=== PATIENT | male | born 1980 | race Caucasian/White ===

== ENCOUNTER 2017-04-23 10:48 | Emergency (ER) | payer MEDICAID, OTHER ==
[2017-04-23] MEDS ORDERED: LORazepam 2 MG/ML DISP.SYRIN IM ONE (11:31)
--- NOTE | 2017-04-23 11:38 | ERNOTE ---
Psychological HPI - Date Date of Service: 04/23/17 - General Chief Complaint: Anxiety Source: Reports: patient Exam Limitations: Reports: no limitations - Immun/Allergies/Home Medications Allergies/Adverse Reactions: Allergies No Known Allergies Allergy (Verified 04/23/17 10:58) Home Medications: HOME MEDICATIONS traZODone HCL [Desyrel] 100 mg PO BID 11/23/14 [Last Taken Unknown] ALPRAZolam [Xanax] 0.25 mg PO TID PRN #30 tab 04/23/17 [Last Taken Unknown] Divalproex Sodium [Depakote ER] 500 mg PO DAILY #30 tab 04/23/17 [Last Taken Unknown] Venlafaxine HCl [Venlafaxine HCl ER] 225 mg PO HS #30 tab.er.24 04/23/17 [Last Taken Unknown] - History of Present Illness Narrative: Pt. comes in with c/o anxiety, depression, and panic attacks after leaving [facility] 3 weeks ago. Pt. was on medications for this for two years and stopped them because he did not like the way that the respirdal that he was on made him feel. But since leaving [facility] he has felt hopeless, depressed, very anxious about rebuilding the relationship with his children, getting a job and restarting his life. Pt. state that he has though that he is not needed to be on earth but has no plans to end his life. Pt. denies any SOB, CP, NVD, fever,s , pt. is wringing hands while here and states that his thoughts are racing at this time. Time Seen by Provider: 04/23/17 11:18 Review of Systems - Review of Systems Constitutional: Present: no symptoms reported. Absent: recent illness, fever, chills, weakness, fatigue, malaise EYE: Present: no symptoms reported ENT: Present: no symptoms reported Respiratory: Present: no symptoms reported. Absent: shortness of breath, cough , wheezing Cardiology: Present: no symptoms reported. Absent: chest pain, palpitations, edema Gastrointestinal/Abdominal: Present: no symptoms reported Genitourinary: Present: no symptoms reported Musculoskeletal: Present: no symptoms reported. Absent: back pain, joint pain Skin: Present: no symptoms reported Neurological: Present: anxiety, depressed, emotional problems. Absent: headache , dizziness/light-headedness, numbness, tingling Psych: Present: anxiety, depressed, emotional problems All Other Systems: All systems neg except as marked - Patient's Past Medical History Patient History - Medical: Anxiety, Depression Patient History - Cardiac/Respiratory: No pertinent hx Patient History - Cancer: No Hx of Cancer Patient History - Surgical Procedures: Other - Social History Smoking Status: Current every day smoker Have you smoked in the past 12 months: Yes - Immunizations Immunizations Up to Date: Yes Physical Exam - Physical Exam General Appearance: Present: wd/wn, alert, no apparent distress Eye Exam: Normal inspection: bilateral, PERRL: bilateral, EOMI: bilateral Ears, Nose, Throat: Present: normal ENT inspection, normal pharynx Neck: Present: normal inspection, nontender. Absent: lymphadenopathy (R), lymphadenopathy (L) Respiratory: Present: no respiratory distress, normal breath sounds, no accessory muscle use, chest nontender, lungs clear Cardiovascular/Chest: Present: regular rate, rhythm, no murmur, normal peripheral pulses Back Exam: Present: normal inspection, normal range of motion, no CVA tenderness , no vertebral tenderness Extremity Exam: Present: normal inspection, non-tender, normal range of motion, no edema Neurological Exam: Present: alert, oriented, normal mood/affect, no motor/ sensory deficits, technical staff engineer II-XII nml as tested, normal cerebellar test Skin Exam: Present: normal color, warm/dry. Absent: pallor, skin rash ED Progress - Date and Time Seen: Date and Time: 04/23/17 12:57 Reviewed notes and will restart psych medications except respirdal and will have him follow up with Dr Bowman as planned on May 21. [facility] [place] [facility] and was given resources for support groups. - Results and Orders Patient's Lab Results:: I have reviewed the patient's lab results. - Vital Signs Patient's Vital Signs:: I have reviewed the patient's vital signs. Vital Signs: Vital Signs 04/23/17 10:55 Temperature 36.7 C Pulse Rate 80 Respiratory 14 Rate Blood Pressure 129/70 O2 Sat by Pulse 97 Oximetry - Progress/Reassessment Chief Complaint: Anxiety Progress:: Improved Departure Clinical Impression: Anxiety and depression - Departure Disposition: Home self-care Condition: Good Instructions: Panic Attacks, [id number] Additional Instructions: Please follow up with Dr Bowman as planned try to make trips into town as much as possible to be around other people and get back into regular routine. Prescriptions: ALPRAZolam [Xanax] 0.25 mg PO TID PRN #30 tab PRN Reason: Anxiety Divalproex Sodium [Depakote ER] 500 mg PO DAILY #30 tab Venlafaxine HCl [Venlafaxine HCl ER] 225 mg PO HS #30 tab.er.24
[2017-04-23] MEDS ORDERED: LORazepam 2 MG/ML DISP.SYRIN ONE (11:46)
[2017-04-23 11:59] LABS: Hematocrit 45.7 % (42.0-52.0); Hemoglobin 16.1 gm/dL (13.5-18.0); Mean Cell Volume 90.3 fl (78-100); Mean Corpuscular Hemoglobin 31.8 pg (27-31); Mean Corpuscular Hgb Conc 35.2 g/dl (32-36); Mean Platelet Volume 9.6 fl (6.0-9.5); Neutrophil # 4.9 K/mm3 (1.3-6.0); Neutrophil % 60.7 % (42-75.0); Platelet Count 320 K/mm3 (150-450); Red Blood Count 5.06 M/mm3 (4.7-6.0); Red Cell Distribution Width 12.3 % (11.5-14.0)
[2017-04-23 12:03] LABS: Urine Bilirubin Negative (NEGATIVE); Urine Blood Negative /ul (NEGATIVE); Urine Ketone Negative (NEGATIVE); Urine Nitrite Negative (NEGATIVE); Urine Protein Negative (NEGATIVE); Urine Specific Gravity 1.025 SP.GR. (1.005-1.030); Urine Urobilinogen Normal (NORMAL)
[2017-04-23 12:15] LABS: Cocaine Ur Negative (NEGATIVE); Urine Barbiturate Negative (NEGATIVE); Urine Benzodiazepines Negative (NEGATIVE); Urine Opiates Negative (NEGATIVE); Urine PCP Negative (NEGATIVE); Urine THC Positive (NEGATIVE)
[2017-04-23 12:17] LABS: Urine Appearance Slightly Cloudy; Urine Color Yellow
[2017-04-23 12:18] LABS: Urine Bacteria 1+; Urine RBC None Seen /hpf (0-5); Urine WBC TRACE /hpf (0-5)
[2017-04-23 12:20] LABS: Urine Amorphous Sediment Moderate - 2+ (NONE-FEW)
[2017-04-23 12:21] LABS: ALT 32 U/L (19-67); AST 22 U/L (0-48); Albumin * 3.9 gm/dl (3.4-5.0); Alkaline Phosphatase * 86 U/L (50-170); Anion Gap 13.1 mmol/L (6.8-13.8); BUN/Creatinine Ratio 13.3 (9.0-21.6); Bilirubin, Total 0.3 mg/dL (0.0-1.1); Blood Urea Nitrogen 12 mg/dL (6-23); Ca. Corrected For Albumin 10.2 mg/dL (8.4-10.2); Calcium * 10.4 mg/dL (7.9-10.9); Carbon Dioxide 25.1 mmol/L (24-32.6); Chloride 105 mmol/L (97-106); Glucose * 125 mg/dL (70-110); Potassium 4.2 mmol/L (3.4-4.6); Sodium 139 mmol/L (132-142); TSH * 1.058 uIU/mL (0.358-3.74); Total Protein 7.9 gm/dL (6.2-8.2)
[2017-04-23 13:18] VITALS: BP 97/76
== END 2017-04-23 13:15 | disposition home or self-care (01) ==
LOC: ER 10:48
DX: F41.8 Other specified anxiety disorders (principal); F17.210 Nicotine dependence, cigarettes, uncomplicated
CPT/HCPCS: 36415; 80053; 80307; 81001; 84443; 85025; 96372; 99284; G0481

== ENCOUNTER 2018-07-21 19:37 | Observation (INO) | payer OTHER ==
--- NOTE | 2018-07-21 20:11 | ERNOTE ---
Medical Problem HPI - General Chief Complaint: Drug Overdose Time Seen by Provider: 07/21/18 19:55 Source: patient Exam Limitations: no limitations - Immun/Allergies/Home Medications Immunizations: IMMUNIZATION HX Immunizations Up to Date Yes Allergies/Adverse Reactions: Allergies No Known Allergies Allergy (Verified 04/23/17 10:58) Home Medications: HOME MEDICATIONS traZODone HCL [Desyrel] 100 mg PO BID 11/23/14 [Last Taken Unknown] ALPRAZolam [Xanax] 0.25 mg PO TID PRN #30 tab 04/23/17 [Last Taken Unknown] Divalproex Sodium [Depakote ER] 500 mg PO DAILY #30 tab 04/23/17 [Last Taken Unknown] Venlafaxine HCl [Venlafaxine HCl ER] 225 mg PO HS #30 tab.er.24 04/23/17 [Last Taken Unknown] - History of Present History Narrative: Pt states that he thought his girlfriend was "going to do something stupid" so he showed her how stupid it would be and too all his xanax. 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 Timing: constant Severity: moderate Review of Systems - Narrative Narrative: Pt did answer questions but fell asleep quickly. - Review of Systems Constitutional: Absent: recent illness Respiratory: Absent: shortness of breath Psych: Present: depressed, emotional problems Medical History (Last Reviewed 07/21/18 @ 20:09 by Daniel Marquez DO) No pertinent past medical history Surgical History: Surgical History (Last Reviewed 07/21/18 @ 20:09 by Daniel Marquez DO) Amputation of right middle finger Leg fracture, left Family History: Family History (Last Updated 07/21/18 @ 19:53 by Soheila Rivas RN) Other No pertinent family history Social History: Preferred Language Czech Smoking Status Never smoker Have you smoked in the past 12 No months Alcohol Use none Drug Use none Physical Exam - Physical Exam General Appearance: Present: wd/wn, no apparent distress, lethargic Head Exam: Present: normal inspection, no evidence of injury Ears, Nose, Throat: Present: normal ENT inspection, normal pharynx Neck: Present: normal inspection, nontender, supple Respiratory: Present: no respiratory distress, normal breath sounds, lungs clear Cardiovascular/Chest: Present: regular rate, rhythm, no murmur, normal peripheral pulses Gastrointestinal/Abdominal: Present: normal bowel sounds, nontender, nondistended, soft Extremity Exam: Present: normal inspection, normal range of motion, no edema Neurological Exam: Present: no motor/sensory deficits, other - somnolent but awakes to verbal stimuli and is oriented x 4. Skin Exam: Present: normal color, warm/dry Lymphatic Exam: Present: no adenopathy ED Progress - Results and Orders Patient's Lab Results:: I have reviewed the patient's lab results. Results and Orders: Laboratory Tests 07/21/18 07/21/18 07/21/18 20:20 20:20 20:20 WBC 11.7 H Hgb 15.5 Hct 44.9 Plt Count 337 Sodium 136 Potassium 4.3 Chloride 103 Carbon Dioxide 28.0 BUN 15 Creatinine 0.94 Random Glucose 84 Calcium 10.7 Total Bilirubin 0.4 AST 36 ALT 26 Alkaline Phosphatase 86 Total Protein 7.4 Albumin 3.9 Urine Color Yellow Urine Appearance Clear Urine pH 6.0 Ur Specific [place] 1.025 Urine Protein Negative Urine Glucose (UA) Negative Urine Ketones Negative Urine Blood Negative Urine Nitrate Negative Urine Bilirubin Negative Urine Urobilinogen Normal Ur Leukocyte Esterase Negative Urine RBC None seen Urine WBC None seen Ur Epithelial Cells None seen Ur Squamous Epith Cells None seen Urine Bacteria None seen Urine Culture Comments No culture indicated Salicylates Less than 2.8 L Urine Opiates Screen Acetaminophen Less than 0.2 L Barbiturate Screen Ur Phencyclidine Scrn Urine Amphetamine U Benzodiazepines Scrn Urine Cocaine Screen Urine Marijuana (THC) Ethyl Alcohol Less than 3.0 07/21/18 20:20 WBC Hgb Hct Plt Count Sodium Potassium Chloride Carbon Dioxide BUN Creatinine Random Glucose Calcium Total Bilirubin AST ALT Alkaline Phosphatase Total Protein Albumin Urine Color Urine Appearance Urine pH Ur Specific [place] Urine Protein Urine Glucose (UA) Urine Ketones Urine Blood Urine Nitrate Urine Bilirubin Urine Urobilinogen Ur Leukocyte Esterase Urine RBC Urine WBC Ur Epithelial Cells Ur Squamous Epith Cells Urine Bacteria Urine Culture Comments Salicylates Urine Opiates Screen Negative Acetaminophen Barbiturate Screen Negative Ur Phencyclidine Scrn Negative Urine Amphetamine Positive H U Benzodiazepines Scrn Positive H Urine Cocaine Screen Negative Urine Marijuana (THC) Positive H Ethyl Alcohol - Vital Signs Patient's Vital Signs:: I have reviewed the patient's vital signs. Vital Signs: Vital Signs 07/21/18 19:41 Temperature 36.8 C Pulse Rate 77 Respiratory Rate 16 Blood Pressure 119/66 O2 Sat by Pulse Oximetry 96 - EKG EKG: NSR, no ST T wave changes EKG read: Interp. by me - Progress/Reassessment Chief Complaint: Drug Overdose Progress:: Unchanged Progress Note-Subjective: 07/21/18 21:42 We were unable to get a specific time frame from poison control in relation to the Xanax that the patient took. He has been stable and with a 11-12 hour 1/2 life of Xanax he will most likely need to be observed at least 1-2 half lives. I spoke with the warehouse freight handler and she does have staffing to keep him in the SCU. I spoke with Dr. Watters and he agrees to accept the patient. Departure Clinical Impression: Overdose of benzodiazepine Qualifiers: Encounter type: initial encounter Injury intent: intentional self-harm Qualified Code(s): T42.4X2A - Poisoning by benzodiazepines, intentional self- harm, initial encounter - Departure Disposition: Still a patient Condition: Stable
[2018-07-21 20:22] LABS: Hematocrit 44.9 % (42.0-52.0); Hemoglobin 15.5 gm/dL (13.5-18.0); Mean Cell Volume 90.9 fl (78-100); Mean Corpuscular Hemoglobin 31.4 pg (27-31); Mean Corpuscular Hgb Conc 34.5 g/dl (32-36); Mean Platelet Volume 9.1 fl (8-11.3); Neutrophil # 7.6 K/mm3 (1.3-6.0); Neutrophil % 64.5 % (42-75.0); Platelet Count 337 K/mm3 (150-450); Red Blood Count 4.94 M/mm3 (4.7-6.0); Red Cell Distribution Width 12.2 % (11.5-14.0); White Blood Count 11.7 K/mm3 (4.0-10.5)
[2018-07-21 20:33] LABS: Urine Bilirubin Negative (NEGATIVE); Urine Blood Negative /ul (NEGATIVE); Urine Ketone Negative (NEGATIVE); Urine Nitrite Negative (NEGATIVE); Urine Protein Negative (NEGATIVE); Urine Specific Gravity 1.025 SP.GR. (1.005-1.030); Urine Urobilinogen Normal (NORMAL)
[2018-07-21 20:35] LABS: ALT 26 U/L (19-67); AST 36 U/L (0-48); Albumin * 3.9 gm/dl (3.4-5.0); Alkaline Phosphatase * 86 U/L (50-170); Anion Gap 9.3 mmol/L (6.8-13.8); Bilirubin, Total 0.4 mg/dL (0.0-1.1); Blood Urea Nitrogen 15 mg/dL (6-23); Ca. Corrected For Albumin 10.5 mg/dL (8.4-10.2); Calcium * 10.7 mg/dL (7.9-10.9); Chloride 103 mmol/L (97-106); Glucose * 84 mg/dL (70-110); Potassium 4.3 mmol/L (3.4-4.6); Salicylate Less than 2.8 mg/dL (2.8-20.0); Sodium 136 mmol/L (132-142); Total Protein 7.4 gm/dL (6.2-8.2)
[2018-07-21 20:36] LABS: Urine Appearance Clear (CLEAR); Urine Bacteria None Seen; Urine Color Yellow; Urine RBC None Seen /hpf (0-5); Urine Squamous Epithelial Cell None Seen /hpf; Urine WBC None Seen /hpf (0-5)
[2018-07-21 20:45] LABS: Cocaine Ur Negative (NEGATIVE); Urine Barbiturate Negative (NEGATIVE); Urine Opiates Negative (NEGATIVE); Urine PCP Negative (NEGATIVE)
[2018-07-21 20:47] LABS: Urine Benzodiazepines Positive (NEGATIVE); Urine THC Positive (NEGATIVE)
--- NOTE | 2018-07-21 23:39 | HP ---
Chief Complaint - Chief Complaint Date of Service: 07/21/18 Time of Service: 23:24 History of Present Illness: Per ER note, patient took all of his xanax at once to show his girlfriend how stupid it would be. Since his arrival he has denied wanting to hurt himself, recognizes how dumb it was. He was arousable but quickly fell asleep. He has a hx of depression/anxiety based on his medications. Will discuss further when he is more coherent. Medical History (Last Updated 07/21/18 @ 22:56 by Italia Saba, GLORIA) Anxiety Depression Panic attack Psoriasis Seizure Surgical History: Surgical History (Last Reviewed 07/21/18 @ 22:56 by Italia Saba, GLORIA) Amputation of right middle finger Leg fracture, left Family History: Family History (Last Reviewed 07/21/18 @ 22:56 by Italia Saba, GLORIA) Other No pertinent family history Social History: Patient Lives/Resources Home Utilized Occupation disabled Preferred Language Kazakh Do you have any islam or No cultural preference? Smoking Status Never smoker Have you smoked in the past 12 No months Alcohol Use none Drug Use none Review Of Systems (GEN) - Review of Systems Additional Comments: Patient unable/unwilling to answer questions at this time, other than he was not trying to harm himself. He is to sedated Immunizations: IMMUNIZATION HX Immunizations Up to Date Yes Allergies/Adverse Reactions: Allergies Allergy/AdvReac Type Severity Reaction Status Date / Time No Known Allergies Allergy Verified 07/21/18 22:56 Home Medications: HOME MEDICATIONS traZODone HCL [Desyrel] 100 mg PO BID 11/23/14 [Last Taken Unknown] ALPRAZolam [Xanax] 0.25 mg PO TID PRN #30 tab 04/23/17 [Last Taken Unknown] Divalproex Sodium [Depakote ER] 500 mg PO DAILY #30 tab 04/23/17 [Last Taken Unknown] Venlafaxine HCl [Venlafaxine HCl ER] 225 mg PO HS #30 tab.er.24 04/23/17 [Last Taken Unknown] Exam - Exam Vital Signs: Vital Signs - Last Taken Temp 36.2 C 07/21/18 22:23 Pulse 74 07/21/18 23:23 Resp 16 07/21/18 23:23 BP 100/58 07/21/18 23:23 Pulse Ox 97 07/21/18 23:23 Constitutional: Present: Alert, Oriented x3, Somnolent, Middle aged Neck: Present: non-tender, supple Respiratory: Present: chest non-tender, lungs clear, normal breath sounds, no respiratory distress Cardiovascular/Chest: Present: regular rate, rhythm, no edema Abdomen: Present: Normal bowel sounds, soft Skin Exam: Present: normal color, warm/dry, no cyanosis Diagnostic Studies: Abnormal Lab Results 07/21/18 07/21/18 07/21/18 Range/Units 20:20 20:20 20:20 WBC 11.7 H (4.0-10.5) K/mm3 MCH 31.4 H (27-31) pg Neutrophils # 7.6 H (1.3-6.0) K/mm3 Calcium Adj for Albumin 10.5 H (8.4-10.2) mg/dL Salicylates Less than 2.8 L (2.8-20.0) mg/dL Acetaminophen Less than 0.2 L (10.0-30.0) mcg/mL Urine Amphetamine Positive H (NEGATIVE) U Benzodiazepines Scrn Positive H (NEGATIVE) Urine Marijuana (THC) Positive H (NEGATIVE) Laboratory Results WBC 11.7 K/mm3 (4.0-10.5) H 07/21/18 20:20 RBC 4.94 M/mm3 (4.7-6.0) 07/21/18 20:20 Hgb 15.5 gm/dL (13.5-18.0) 07/21/18 20:20 Hct 44.9 % (42.0-52.0) 07/21/18 20:20 MCV 90.9 fl (78-100) 07/21/18 20:20 MCH 31.4 pg (27-31) H 07/21/18 20:20 MCHC 34.5 g/dl (32-36) 07/21/18 20:20 RDW 12.2 % (11.5-14.0) 07/21/18 20:20 Plt Count 337 K/mm3 (150-450) 07/21/18 20:20 MPV 9.1 fl (8-11.3) 07/21/18 20:20 Immature Gran % (Auto) 0.20 % (0.001-0.429) 07/21/18 20:20 Immature Gran # (Auto) 0.02 K/mm3 (0.000-0.0310) 07/21/18 20:20 Neutrophils % 64.5 % (42-75.0) 07/21/18 20:20 Lymphocytes % 25.5 % (20-51) 07/21/18 20:20 Monocytes % 7.2 % (0.0-9) 07/21/18 20:20 Eosinophils % 1.9 % (0.0-3.0) 07/21/18 20:20 Basophils % 0.7 % (0.0-1.0) 07/21/18 20:20 Nucleated RBC % 0.0 k/mm3 (0-1) 07/21/18 20:20 Neutrophils # 7.6 K/mm3 (1.3-6.0) H 07/21/18 20:20 Lymphocytes # 2.99 k/mm3 (1.5-3.5) 07/21/18 20:20 Monocytes # 0.9 k/mm3 (0.0-1.0) 07/21/18 20:20 Eosinophils # 0.2 k/mm3 (0.0-0.7) 07/21/18 20:20 Absolute Basophils 0.1 k/mm3 (0.0-0.1) 07/21/18 20:20 Sodium 136 mmol/L (132-142) 07/21/18 20:20 Plasma Sodium 136 mmol/L (130-142) 07/21/18 20:20 Potassium 4.3 mmol/L (3.4-4.6) 07/21/18 20:20 Chloride 103 mmol/L (97-106) 07/21/18 20:20 Carbon Dioxide 28.0 mmol/L (24-32.6) 07/21/18 20:20 Anion Gap 9.3 mmol/L (6.8-13.8) 07/21/18 20:20 BUN 15 mg/dL (6-23) 07/21/18 20:20 Creatinine 0.94 mg/dL (0.4-1.4) 07/21/18 20:20 Est GFR (Non-Af Amer) 94 mL/min (60-130) 07/21/18 20:20 BUN/Creatinine Ratio 16.0 (9.0-21.6) 07/21/18 20:20 Random Glucose 84 mg/dL (70-110) 07/21/18 20:20 Calcium 10.7 mg/dL (7.9-10.9) 07/21/18 20:20 Calcium Adj for Albumin 10.5 mg/dL (8.4-10.2) H 07/21/18 20:20 Total Bilirubin 0.4 mg/dL (0.0-1.1) 07/21/18 20:20 AST 36 U/L (0-48) 07/21/18 20:20 ALT 26 U/L (19-67) 07/21/18 20:20 Alkaline Phosphatase 86 U/L (50-170) 07/21/18 20:20 Total Protein 7.4 gm/dL (6.2-8.2) 07/21/18 20:20 Albumin 3.9 gm/dl (3.4-5.0) 07/21/18 20:20 Urine Color Yellow 07/21/18 20:20 Urine Appearance Clear (CLEAR) 07/21/18 20:20 Urine pH 6.0 pH (5.0-7.0) 07/21/18 20:20 Ur Specific [place] 1.025 SP.GR. (1.005-1.030) 07/21/18 20:20 Urine Protein Negative mg/dL (NEGATIVE) 07/21/18 20:20 Urine Glucose (UA) Negative mg/dL (NEGATIVE) 07/21/18 20:20 Urine Ketones Negative mg/dL (NEGATIVE) 07/21/18 20:20 Urine Blood Negative /ul (NEGATIVE) 07/21/18 20:20 Urine Nitrate Negative (NEGATIVE) 07/21/18 20:20 Urine Bilirubin Negative mg/dl (NEGATIVE) 07/21/18 20:20 Urine Urobilinogen Normal EU/dl (NORMAL) 07/21/18 20:20 Ur Leukocyte Esterase Negative /ul (NEGATIVE) 07/21/18 20:20 Urine RBC None seen /hpf (0-5) 07/21/18 20:20 Urine WBC None seen /hpf (0-5) 07/21/18 20:20 Ur Epithelial Cells None seen /hpf (0-5) 07/21/18 20:20 Ur Squamous Epith Cells None seen /hpf (NONE) 07/21/18 20:20 Urine Bacteria None seen (NONE) 07/21/18 20:20 Urine Culture Comments No culture indicated 07/21/18 20:20 Salicylates Less than 2.8 mg/dL (2.8-20.0) L 07/21/18 20:20 Urine Opiates Screen Negative (NEGATIVE) 07/21/18 20:20 Acetaminophen Less than 0.2 mcg/mL (10.0-30.0) L 07/21/18 20:20 Barbiturate Screen Negative (NEGATIVE) 07/21/18 20:20 Ur Phencyclidine Scrn Negative (NEGATIVE) 07/21/18 20:20 Urine Amphetamine Positive (NEGATIVE) H 07/21/18 20:20 U Benzodiazepines Scrn Positive (NEGATIVE) H 07/21/18 20:20 Urine Cocaine Screen Negative (NEGATIVE) 07/21/18 20:20 Urine Marijuana (THC) Positive (NEGATIVE) H 07/21/18 20:20 Ethyl Alcohol Less than 3.0 mg/dL (0.0-10.0) 07/21/18 20:20 Assessment/Plan - Assessment/Plan (1) Overdose of benzodiazepine Assessment: Patient will stay in the SCU until he is no longer at risk for respiratory distress. Will continue to monitor vitals q 1 HR-they have been stable since being brought to the floor. Poison control recommended monitoring for 12-18 hours from time of ingestion (roughly 5:30 PM). Will resume his other medications once he can safely tolerate PO. Once stable, will return back to the police custody. Problem: Acute Qualifiers: Encounter type: initial encounter Injury intent: intentional self-harm Qualified Code(s): T42.4X2A - Poisoning by benzodiazepines, intentional self- harm, initial encounter (2) Intentional self-harm Problem: Acute (3) Anxiety and depression Problem: Chronic
[2018-07-22 12:53] VITALS: BP 105/64
--- NOTE | 2018-07-22 13:27 | DS ---
(1) Overdose of benzodiazepine Problem: Resolved Qualifiers: Encounter type: initial encounter Injury intent: intentional self-harm Qualified Code(s): T42.4X2A - Poisoning by benzodiazepines, intentional self- harm, initial encounter (2) Intentional self-harm Problem: Resolved (3) Anxiety and depression Problem: Chronic Description of Stay: Patient brought in to the ER by Police for intentional harm by OD on Xanax. Patient was not trying to commit suicide, he was trying "to prove a point to his significant other". Initial presentation patient was somnolent but arousable. His VS were stable and he protected his airway. He was monitored in the SCU for 18 hours (recommendation by poison control) where his clinical status continued to improve. Pertinent labs included toxicology report showing benzos, amphetamines, and TCH in urine. He was discharge home in stable condition with recommendation to follow up with Melissa Hoang as directed. All questions or concerns addressed. Procedures Performed: none Results and Findings: Lab Pending Results 07/21/18 20:20: WBC 11.7 H, RBC 4.94, Hgb 15.5, Hct 44.9, MCV 90.9, MCH 31.4 H, MCHC 34.5, RDW 12.2, Plt Count 337, MPV 9.1, Immature Gran % (Auto) 0.20, Immature Gran # (Auto) 0.02, Neutrophils % 64.5, Lymphocytes % 25.5, Monocytes % 7.2, Eosinophils % 1.9, Basophils % 0.7, Nucleated RBC % 0.0, Neutrophils # 7.6 H, Lymphocytes # 2.99, Monocytes # 0.9, Eosinophils # 0.2, Absolute Basophils 0.1 07/21/18 20:20: Sodium 136, Plasma Sodium 136, Potassium 4.3, Chloride 103, Carbon Dioxide 28.0, Anion Gap 9.3, BUN 15, Creatinine 0.94, Est GFR (Non-Af Amer) 94, BUN/Creatinine Ratio 16.0, Random Glucose 84, Calcium 10.7, Calcium Adj for Albumin 10.5 H, Total Bilirubin 0.4, AST 36, ALT 26, Alkaline Phosphatase 86, Total Protein 7.4, Albumin 3.9, Salicylates Less than 2.8 L, Acetaminophen Less than 0.2 L, Ethyl Alcohol Less than 3.0 07/21/18 20:20: Urine Color Yellow, Urine Appearance Clear, Urine pH 6.0, Ur Specific [place] 1.025, Urine Protein Negative, Urine Glucose (UA) Negative, Urine Ketones Negative, Urine Blood Negative, Urine Nitrate Negative, Urine Bilirubin Negative, Urine Urobilinogen Normal, Ur Leukocyte Esterase Negative, Urine RBC None seen, Urine WBC None seen, Ur Epithelial Cells None seen, Ur Squamous Epith Cells None seen, Urine Bacteria None seen, Urine Culture Comments No culture indicated 07/21/18 20:20: Urine Opiates Screen Negative, Barbiturate Screen Negative, Ur Phencyclidine Scrn Negative, Urine Amphetamine Positive H, U Benzodiazepines Scrn Positive H, Urine Cocaine Screen Negative, Urine Marijuana (THC) Positive H Discharge Location: Home Disposition: Home self-care Condition: Stable Discharge Activity: Activity as tolerated Discharge Diet: General/regular food Additional Patient Instructions (free text): Please follow up with Melissa Peters as directed. Call her upon discharge to try to set up an earlier appointment (scheduled to see her in 2 weeks to discuss medications). Complete Home Medications List: Complete Home Medication List: traZODone HCL [Desyrel] 100 mg PO BID 11/23/14 Divalproex Sodium [Depakote ER] 500 mg PO DAILY #30 tab 04/23/17 Venlafaxine HCl [Venlafaxine HCl ER] 225 mg PO HS #30 tab.er.24 04/23/17
== END 2018-07-22 13:45 | disposition home or self-care (01) ==
LOC: ER 19:37 → INTOOBSV 21:53 → OBSVTOIN 21:53 → SCU 21:53
PROVIDERS: ADMIT Family Medicine; ATTEND Family Medicine
CPT/HCPCS: 36415; 80053; 80307; 80320; 80329; 81001; 85025; 93005; 94760; 99284; G0378; G0479; G0480; G0481